=== PATIENT | female | born 1990 | race African-American/Black ===

== ENCOUNTER 2017-12-20 23:26 | Emergency (ER) | payer OTHER ==
[~2017-12-20] VITALS: Ht 167.6 cm; Wt 74.8 kg
[2017-12-20 23:30] VITALS: BP 144/95
[2017-12-21 00:10] LABS: APPEARANCE,URINE SLIGHTLY CLOUDY; BILIRUBIN, URINE 3+ (NEGATIVE); COLOR,URINE ORANGE; GLUCOSE, URINE (UA) NEGATIVE (NEGATIVE); KETONES,URINE NEGATIVE (NEGATIVE); PH,URINE 5 (4.5-8.0); PROTEIN,URINE 2+ (NEGATIVE)
[2017-12-21 00:11] LABS: LEUKOCYTE ESTERASE ,URINE 2+ (NEGATIVE); NITRITE,URINE NEGATIVE (NEGATIVE); UROBILINOGEN,URINE 8 MG/DL (0.0-1.0)
[2017-12-21] MEDS ORDERED: Lidocaine 1% MPF 10mg/ml 5ml INJ ONE (00:15)
[2017-12-21] MEDS ORDERED: Azithromycin 250mg tab ORAL ONE (00:15)
--- NOTE | 2017-12-21 00:51 | Emergency Room Report ---
History of Present Illness General Chief Complaint: Female Urogenital Problems Source: Patient Present Illness HPI Is a 27-year-old female withwith past medical history. She had an elective with RU-486. This was about week and a half to 2 weeks ago. She presents with chief complaint of "I want everything to be checked." She is having vaginal itching and discharge. She thinks is a yeast infection. No nausea no vomiting. No fever or chills. No bleeding. Her boyfriend is also here for the same complaint with penile discharge. Allergies: Coded Allergies: No Known Allergies (Unverified , 12/20/17) Patient History Past Medical History: see triage record, old chart reviewed Past Surgical History: none Pertinent Family History: none Social History: Denies: smoking Last Menstrual Period: Dec Now: No : 2 Para: 2 Immunizations: other Reviewed Nursing Documentation: PMH: Agreed, PSxH: Agreed Nursing Documentation-PMH Hx Asthma: Yes Review of Systems Eye: Denies: eye pain, blurred vision ENT: Denies: ear pain, nose congestion, throat swelling Respiratory: Denies: cough, shortness of breath Cardiovascular: Denies: chest pain, palpitations Gastrointestinal: Denies: abdominal pain, diarrhea, nausea, vomiting Genitourinary: Reports: discharge, pain Musculoskeletal: Denies: back pain, joint pain Skin: Denies: rash Neurological: Denies: headache, numbness Endocrine: Denies: increased thirst, increased urine Hematologic/Lymphatic: Denies: easy bruising All Other Systems: negative except mentioned in HPI Physical Exam Vital Signs Date Time Temp Pulse Resp B/P (MAP) Pulse Ox O2 Delivery O2 Flow Rate FiO2 12/20/17 23:27 99.0 99 18 144/95 98 Room Air vitals normal Sp02 EP Interpretation: reviewed, normal General Appearance: well appearing, no apparent distress, alert, obese Head: normocephalic, atraumatic Eyes: bilateral eye PERRL, bilateral eye EOMI ENT: hearing grossly normal, normal pharynx Neck: full range of motion, supple, no meningismus Respiratory: chest non-tender, lungs clear, normal breath sounds Cardiovascular #1: regular rate, rhythm, no murmur Gastrointestinal: normal bowel sounds, non tender, no mass, no organomegaly, no bruit, non-distended Genitourinary: other - 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 External exam is normal. Internal exam showed yellowish discharge. Cervical motion tenderness. No adnexal tenderness. Musculoskeletal: back normal, gait/station normal, normal range of motion Neurologic: alert, oriented x3 Psychiatric: mood/affect normal Skin: warm/dry Medical Decision Making Diagnostic Impression: Primary Impression: Acute cervicitis Additional Impression: Incomplete ER Course Patient with acute cervicitis. Most likely gonorrhea. He treated her for many also. She said she had an ultrasound that confirmed IUP and then had elective with pill. Bleeding stopped after a week. A CT still positive. She may have some retained products or incomplete . She is scheduled for followup the clinic for another ultrasound. We'll discharge home. Last Vital Signs Date Time Temp Pulse Resp B/P (MAP) Pulse Ox O2 Delivery O2 Flow Rate FiO2 12/20/17 23:27 99.0 99 18 144/95 98 Room Air Status: improved Disposition: HOME, SELF-CARE Condition: Stable Referrals: [facility],REFERRING (PCP) Additional Instructions: Followup with your doctor regarding her miscarriage. He will need further workup. Return if symptom worsen. Recommend outpatient testing for HIV, hepatitis, and other STD. Return if symptom worsen. DAWOOD RODRIGUEZ M.D. Dec 21, 2017 00:51
[2017-12-21 01:55] VITALS: BP 144/95
== END 2017-12-21 01:55 | disposition home or self-care (01) ==
LOC: EMR 23:42
DX: N72 Inflammatory disease of cervix uteri (principal); O03.4 Incomplete spontaneous abortion without complication; J45.909 Unspecified asthma, uncomplicated
CPT/HCPCS: 36415; 81003; 81025; 84702; 87086; 87181; 87210; 96372; 99284; J0696; Q0144